=== PATIENT | male | born 1990 | race Caucasian/White ===

== ENCOUNTER 2021-06-10 04:55 | Emergency (ER) | payer MEDICAID ==
[~2021-06-10] VITALS: Ht 172.7 cm; Wt 73.0 kg
[2021-06-10 04:57] VITALS: BP 143/101
[2021-06-10] MEDS ORDERED: IBUPROFEN 600MG TABLET PO NR (05:30)
== END 2021-06-10 06:13 | disposition left against medical advice (07) ==
LOC: ER 04:55
DX: S76.011A Strain of muscle, fascia and tendon of right hip, initial encounter (principal); M25.551 Pain in right hip; X58.XXXA Exposure to other specified factors, initial encounter; Y93.89 Activity, other specified; Y92.89 Other specified places as the place of occurrence of the external cause; Y99.8 Other external cause status; F17.290 Nicotine dependence, other tobacco product, uncomplicated; F12.10 Cannabis abuse, uncomplicated; F15.10 Other stimulant abuse, uncomplicated
CPT/HCPCS: 73502; 99283

== ENCOUNTER 2021-06-10 07:25 | Emergency (ER) | payer MEDICAID ==
[~2021-06-10] VITALS: Ht 177.8 cm; Wt 95.0 kg
[2021-06-10] MEDS ORDERED: SODIUM CHLORIDE 0.9% 1,000 ML IV ONE (08:30)
[2021-06-10 09:21] LABS: BASOPHILS % 0.8 % (0.0-2.0); EOSINOPHILS % 1.4 % (0.0-5.0); HEMATOCRIT. 37.8 % (42.0-52.0); HEMOGLOBIN. 13.2 g/dL (14.0-18.0); LYMPHOCYTES % 14.2 % (20.0-50.0); MEAN CORPUSCULAR VOLUME 82.8 fL (80.0-94.0); MEAN PLATELET VOLUME 6.5 fl (7.4-10.4); MONOCYTES % 7.7 % (2.0-8.0); NEUTROPHILS % 75.9 % (40.0-76.0); PLATELET 296 x1000/uL (130-400); RED BLOOD CELL COUNT 4.56 mill/uL (4.7-6.1); RED CELL DISTRIBUTION WIDTH 14.7 % (11.6-14.6)
[2021-06-10 09:30] LABS: CHLORIDE 97 mEq/L (98-107)
[2021-06-10 09:34] LABS: ETHANOL BLOOD < 10 mg/dL
[2021-06-10] MEDS ORDERED: GUAIFENESIN 200MG/10ML SUGAR FREE UDC PO PRN (13:00)
[2021-06-10] MEDS ORDERED: ACETAMINOPHEN 325MG TABLET PO PRN (13:00)
[2021-06-10] MEDS ORDERED: MAGNESIUM/ALUMINUM HYDROXIDE/SIMETHICONE 30ML UDC PO PRN (13:00)
[2021-06-10] MEDS ORDERED: CLONIDINE 0.1MG TABLET PO PRN (13:00)
[2021-06-10] MEDS ORDERED: DIPHENHYDRAMINE 50MG/ML VIAL IV PRN (13:00)
[2021-06-10] MEDS ORDERED: ONDANSETRON HCL 4MG/2ML INJ IV PRN (13:00)
[2021-06-10] MEDS ORDERED: HYDROCODONE/ACETAMINOPHEN 5/325MG TABLET PO PRN (13:00)
[2021-06-10] MEDS ORDERED: DOCUSATE SODIUM 100MG CAPSULE PO PRN (13:00)
[2021-06-10] MEDS ORDERED: LORAZEPAM 2MG/ML CPJ IV PRN (13:00)
[2021-06-10 13:07] LABS: CLARITY URINE CLOUDY (CLEAR); COLOR URINE YELLOW (YELLOW); KETONES URINE NEGATIVE (NEGATIVE); LEUKOCYTE ESTERASE URINE NEGATIVE (NEGATIVE); NITRITE URINE NEGATIVE (NEGATIVE); OCCULT BLOOD URINE NEGATIVE (NEGATIVE); PROTEIN URINE NEGATIVE (NEGATIVE); SPECIFIC GRAVITY URINE 1.021 (1.005-1.030)
[2021-06-10 13:25] LABS: *AMPHETAMINES SCREEN URINE NEGATIVE (NEGATIVE); *BARBITURATES SCREEN URINE NEGATIVE (NEGATIVE)
[2021-06-10 13:26] LABS: *BENZODIAZEPINES SCREEN URINE NEGATIVE (NEGATIVE); *COCAINE SCREEN URINE NEGATIVE (NEGATIVE); CANNABINOID URINE SCREEN NEGATIVE (NEGATIVE); OPIATES URINE SCREEN NEGATIVE (NEGATIVE); PHENCYCLIDINE URINE SCREEN NEGATIVE (NEGATIVE)
[2021-06-10] MEDS ORDERED: DEXT 5%/0.9% NACL 1,000 ML IV ONE (13:30)
[2021-06-10 13:32] LABS: METHADONE URINE SCREEN NEGATIVE (NEGATIVE)
[2021-06-10] MEDS ORDERED: ENOXAPARIN 40MG/0.4ML SYR SUBCUT SCH (14:00)
[2021-06-10 16:47] VITALS: BP 141/84
[2021-06-10] MEDS ORDERED: NALOXONE HCL 0.4MG/ML VIAL IV PRN (17:00)
== END 2021-06-10 19:15 | disposition left against medical advice (07) ==
LOC: ER 07:32 → CANBEDREQ 06-11 02:23
DX: G93.40 Encephalopathy, unspecified (principal); E87.1 Hypo-osmolality and hyponatremia; G91.9 Hydrocephalus, unspecified; R79.89 Other specified abnormal findings of blood chemistry; M25.551 Pain in right hip; F12.10 Cannabis abuse, uncomplicated; F15.10 Other stimulant abuse, uncomplicated
CPT/HCPCS: 36415; 70450; 71045; 80053; 80305; 80320; 81003; 85025; 96361; 96374; 99291; J2060; J7030; J7042; G0480

== ENCOUNTER 2021-06-11 00:59 | Emergency (ER) | payer MEDICAID ==
[~2021-06-11] VITALS: Ht 165.1 cm; Wt 73.0 kg
[2021-06-11 01:10] VITALS: BP 155/92
== END 2021-06-11 06:04 | disposition home or self-care (01) ==
LOC: ER 00:59
DX: G89.29 Other chronic pain (principal); R10.2 Pelvic and perineal pain; M25.551 Pain in right hip
CPT/HCPCS: 99283